=== PATIENT | male | born 1955 | race Caucasian/White ===

== ENCOUNTER 2022-10-25 09:54 | Emergency (ER) | payer BC ==
[~2022-10-25] VITALS: Ht 167.6 cm; Wt 74.8 kg
[2022-10-25] MEDS ORDERED: KETOROLAC TROMETHAMINE 60 MG/2 ML VIAL IM ONE (10:30)
[2022-10-25 10:36] VITALS: BP_SYST 127; BP_SYST 78
[2022-10-25] MEDS ORDERED: TRAM50TA2 PO (12:07)
[2022-10-25] MEDS ORDERED: CORTEARS RIGHT EAR (12:07)
[2022-10-25] MEDS ORDERED: NAPR-688 PO (12:07)
[2022-10-25 12:28] VITALS: BP_SYST 170
== END 2022-10-25 12:28 | disposition home or self-care (01) ==
LOC: SED 09:54
DX: M76.9 Unspecified enthesopathy, lower limb, excluding foot (principal); H60.91 Unspecified otitis externa, right ear; M25.552 Pain in left hip; M79.652 Pain in left thigh; I10 Essential (primary) hypertension; Z79.899 Other long term (current) drug therapy
CPT/HCPCS: 73552; 96372; 99283; J1885